=== PATIENT | female | born 1990 | race Caucasian/White ===

== ENCOUNTER 2017-07-16 13:04 | Emergency (ER) | payer SELFPAY ==
[~2017-07-16 13:04] MED LIST: ADDE10 PO; Z.0.NO CURRENT MEDS
[2017-07-16 13:06] VITALS: BP 112/65; PULSE 78; RESP 16; TEMP 98.6; O2SAT 100
[2017-07-16] MEDS ORDERED: PRED20 PO (14:39)
--- NOTE | 2017-07-16 14:44 | PD ---
HPI Chief Complaint: Skin Problem Time Seen by Provider: 14:09 Travel History International Travel<30 days: No Contact w/Intl Traveler<30days: No Traveled to known affect area: No History of Present Illness HPI 26 YO F presents to the ED for evaluation of 4 day history of pruritic rash. First noticed on the right flank. Now spread over the back and legs. She can identify no recent changes in grooming products, detergents. She states that she works out regularly but goes to multiple gyms, unsure of any new exposures. She denies fevers, chills,closed throat sensation, difficulties breathing, wheezing. She's never had a rash like this in the past. She treated at home with Benadryl which improved the itching. [facility] Past Medical History ADHD: Yes Diabetes: No Diminished Hearing: No Tetanus Vaccination: < 5 Years Influenza Vaccination: Yes ?: Unknown : 0 Past Surgical History Surgical History: No Previous Surgery Social History Alcohol Use: No Tobacco Use: No Substance Use: Yes Allergies-Medications (Allergen,Severity, Reaction): Coded Allergies: Sulfa (Sulfonamide Antibiotics) (Unverified Allergy, Mild, UNKNOWN, 07/16/17 ) latex (Unverified Allergy, Mild, 07/16/17) Reported Meds & Prescriptions Reported Meds & Active Scripts Active Prednisone 20 Mg Tab 40 Mg PO DIRECTED Take 40 mg (2 tablets) daily for the first 4 days. Then take 20 mg (1 tablet) daily for 4 days. Review of Systems Except as stated in HPI: all other systems reviewed are Neg Physical Exam Narrative GENERAL: Well-nourished, well-developed athletic white female in no acute distress. SKIN: Warm and dry. Multiple large patches of erythematous, blanching, maculopapular rash distributed over the right flank, back and bilateral thighs.. Minimal excoriations. HEAD: Normocephalic. Atraumatic. EYES: No scleral icterus. No injection or drainage. PERRLA. EOMI. ENT: Pearly garcia tympanic membranes bilaterally. Nasal mucosa is moist. Oropharynx without erythema, edema or exudate. Uvula midline. Airway patent. NECK: Supple, trachea midline. No JVD or lymphadenopathy. CARDIOVASCULAR: Regular rate and rhythm without murmurs, gallops, or rubs. RESPIRATORY: Breath sounds clear and equal bilaterally. No accessory muscle use. GASTROINTESTINAL: Abdomen soft, non-tender, nondistended. + Bowel sounds MUSCULOSKELETAL: No cyanosis, or edema. BACK: Nontender without obvious deformity. No CVA tenderness. Data Data Last Documented VS Vital Signs Date Time Temp Pulse Resp B/P (MAP) Pulse Ox O2 Delivery O2 Flow Rate FiO2 07/16/17 13:06 98.6 78 16 112/65 (81) 100 Orders Orders Methylprednisolone So Succ Inj (Solumedr (07/16/17 14:45) Ed Discharge Order (07/16/17 14:44) MDM Medical Decision Making Medical Screen Exam Complete: Yes Emergency Medical Condition: Yes Differential Diagnosis Allergic contact dermatitis versus irritant contact dermatitis versus Narrative Course 26 YO F presents to the ED for evaluation of 4 day history of pruritic rash. First noticed on the right flank, spread over the back and legs. She can identify no recent changes in grooming products, detergents. She states that she works out regularly but goes to multiple gyms, unsure of any new exposures. She denies fevers, chills,closed throat sensation, difficulties breathing, wheezing. Vitals reviewed. Physical exam reveals an athletic white female in no acute distress. He is an erythematous, blanching, maculopapular rash distributed over the right flank, back and bilateral thighs. Scant excoriations. ENT exam is unremarkable. CTAB. Suspect this is allergic contact dermatitis. Patient was administered 40 mg methylprednisone IM in the ED. She is prescribed 40 mg prednisone 4 days, 20 mg prednisone 4 days. She is instructed to avoid no near attempts, avoid warm showers, use Benadryl as needed for itching, take medication as prescribed, return for worsening symptoms , otherwise follow up with a inside sales assistant. She indicated understanding of instructions and is agreeable to the care plan. The patient is stable and discharged home. Diagnosis Primary Impression: Pruritic erythematous rash Referrals: [facility] Service Advisor Patient Instructions: Dermatitis (ED), General Instructions Additional Instructions: Rest, hydrate. Begin taking oral steroids tomorrow. Continue with Benadryl as described on the label, as needed for itch. Avoid hot showers as this can spread the rash and worsen the itching. Follow-up with the inside sales assistant. Return to the ED for worsening symptoms or any urgent or emergent medical condition. Med/Other Pt SpecificInfo: Prescription(s) given Scripts Prednisone (Prednisone) 20 Mg Tab 40 MG PO DIRECTED, #12 TAB 0 Refills Take 40 mg (2 tablets) daily for the first 4 days. Then take 20 mg (1 tablet) daily for 4 days. Prov: Aniceto Ordaz MD 07/16/17 Disposition: 01 DISCHARGE HOME Condition: Stable Melissa Calabrese Jul 16, 2017 14:44
[2017-07-16] MEDS ORDERED: methylPREDNISolone SOD SUCC 40 MG/1 ML VIAL IM SCH (14:45)
== END 2017-07-16 15:02 | disposition home or self-care (01) ==
LOC: NEPK 13:04
DX: L53.9 Erythematous condition, unspecified (principal)
CPT/HCPCS: 96372; 99283; J2920